=== PATIENT | female | born 1995 | race Caucasian/White ===

== ENCOUNTER 2016-06-07 15:08 | Emergency (ER) | payer OTHER ==
[~2016-06-07] VITALS: Ht 160 cm; Wt 65.7 kg
[2016-06-07 15:10] VITALS: TEMP 36.8; Ht 160 cm; Wt 65.7 kg
[2016-06-07] MEDS ORDERED: SODIUM CHLORIDE 0.9% 1000ML 1,000 ML IV STA ×2 (15:32)
[2016-06-07] MEDS ORDERED: ONDANSETRON INJ 2 MG/ML 2 ML VIAL IV STA (15:32)
[2016-06-07 16:01] LABS: URINE APPEARANCE CLEAR (CLEAR); URINE BILIRUBIN NEG (NEG); URINE COLOR YELLOW; URINE NITRITE NEG (NEG); URINE PH 5.5 (4.5-7.5); URINE SPECIFIC GRAVITY 1.029 (1.000-1.030); UROBILINOGEN NEG (NEG)
[2016-06-07 16:06] LABS: HEMATOCRIT 36.6 % (37-47); MEAN CELL VOLUME 83.8 fL (80-100); MEAN CORPUSCULAR HEMOGLOBIN 28.4 pg (25-34); MEAN CORPUSCULAR HGB CONC 33.9 g/dl (32-36); MEAN PLATELET VOLUME 9.2 fL (7.4-10.4); PLATELET COUNT 208 K/uL (130-400); RED BLOOD COUNT 4.37 M/uL (4.2-5.4); WHITE BLOOD COUNT 11.75 K/uL (4.8-10.8)
[2016-06-07 16:06] LABS: MANUAL MICROSCOPIC REQUIRED? NO; REVIEW REQ? NO
--- NOTE | 2016-06-07 16:19 | DIAGNOSTIC IMAGING REPORT ---
ABDOMEN 2VIEW W/PA CHEST RTN CLINICAL HISTORY: abd pain, diarrhea pain COMPARISON STUDY: No previous studies for comparison. FINDINGS: The soft tissues, psoas shadows, renal outlines and intestinal gas pattern appear normal. There is no evidence for bowel obstruction. There is no evidence for free intraperitoneal air. No abnormal abdominal calcifications are seen. A frontal view of the chest was performed and is unremarkable. IMPRESSION: Normal study. Electronically signed by: Rudy Cook M.D. 06/07/2016 4:17 PM Dictated Date/Time: 06/07/2016 4:17 PM
[2016-06-07 16:24] LABS: BUN/CREATININE RATIO 16.1 (10-20); CALCIUM 8.9 mg/dl (8.5-10.1); CREATININE 0.92 mg/dl (0.60-1.20); POTASSIUM 3.8 mmol/L (3.5-5.1)
[2016-06-07 16:27] LABS: ALB/GLOB RATIO 1.1 (0.9-2)
[2016-06-07 16:54] LABS: BASO % 0.3 %; BASO ABS # 0.03 K/uL (0-0.2); COMPLETE YES; EOS % 9.7 %; IG% 0.3 %; LYMPH % 22.4 %; LYMPH ABS # 2.63 K/uL (1.2-3.4); MONO % 5.2 %; NEUT % 62.1 %
--- NOTE | 2016-06-07 17:09 | DIAGNOSTIC IMAGING REPORT ---
Bio quadrant ultrasound GALLBLADDER-ABD LIMITED CLINICAL HISTORY: upper abd pain and nausea TECHNIQUE: Ultrasound COMPARISON STUDY: None FINDINGS: Normal gallbladder. Normal caliber bile duct 3 mm. Liver is uniform throughout. Pancreas and right kidney are unremarkable. IMPRESSION: Normal study Electronically signed by: Rudy Cook M.D. 06/07/2016 5:07 PM Dictated Date/Time: 06/07/2016 5:06 PM
--- NOTE | 2016-06-07 17:12 | DIAGNOSTIC IMAGING REPORT ---
EXAMINATION: PELVIC ULTRASOUND CLINICAL HISTORY: abd pain, hx of ovarian cyst, s/p r oophorectomy PAIN COMPARISON STUDY: None FINDINGS: The uterus measured 7.5 cm. The endometrial stripe measured 5 mm. The right ovary measured surgically removed. The left ovary measured 4.5 cm with several small follicular cysts. Normal vascular flow. There is no ultrasonographic evidence of ovarian torsion. It should be noted that ovarian torsion can be present with normal Doppler ultrasonographic findings. There was no evidence of pathologic free pelvic fluid. IMPRESSION: 1. Prior right ovarian removal 2. Several small left ovarian follicular cyst. 3. Study is otherwise negative. Electronically signed by: Rudy Cook M.D. 06/07/2016 5:10 PM Dictated Date/Time: 06/07/2016 5:09 PM
--- NOTE | 2016-06-07 18:03 | EMERGENCY ROOM VISIT NOTE ---
History First contact with patient: 15:13 Chief Complaint: ABDOMINAL PAIN Stated Complaint: ABDOMINAL PAIN Nursing Triage Summary: Patient c/o mid upper abdominal pain that began approx 1pm and lasted 2 hours but is getting better. Was seen at [facility]. Associated nausea intermittently. Denies v/d. History of Present Illness Patient is a 20-year-old white female who presents to emergency Department from [facility] for evaluation of abdominal pain. Patient states that she developed abdominal pain around 2 hours ago. It was roughly 1 hour after she had a a smoothie to drink. She notes the pain came on very suddenly and was constant for about 90 minutes. It was located in the mid upper abdomen and did not radiate. She states that she had nausea which came in waves, but she did not vomit. She states that at its worst she would've rated her pain an 8/10 and she was doubled over in discomfort. She does report having a normal bowel movement while experiencing the pain, and states that the bowel movement did not help alleviate her discomfort. She does note that she had about 4-5 episodes of loose, watery diarrhea yesterday. It was nonbloody and non- melanotic in nature. She went to [facility] where they checked her urine, then referred her to the emergency department for evaluation. In the interim, the patient reports that her pain has begun to subside on its own and she now only rates it a 5/10. She reports the only time she ever had abdominal discomfort was when she had a right ovarian cyst which ultimately resulted in a right oophorectomy in 2013. She denies any urinary symptoms. Her last menstrual period was 05/29/2015. She is sexually active, denies vaginal discharge or chance of . She denies any personal or family history of gallbladder disease. She denies history of gastritis or ulcers. She denies any recent alcohol use or regular NSAID use. Review of Systems Review of systems as per HPI. All other systems reviewed were negative. 10 systems reviewed. Past Medical/Surgical History Medical Problems: (1) History of right oophorectomy (2) No significant medical problems (3) No significant past surgical history (4) Ovarian cyst (5) Traumatic brain injury Electronic medical records are reviewed and summarized as above/below. See Problem List. Social History Smoking Status: Never Smoker Alcohol Use: none Marital Status: single Occupation Status: [employer] Current/Historical Medications No Active Prescriptions or Reported Meds Allergies Coded Allergies: No Known Allergies (Unverified , 01/01/13) Physical Exam Vital Signs Date Time Temp Pulse Resp B/P Pulse Ox O2 Delivery O2 Flow Rate FiO2 06/07/16 18:11 73 16 106/57 97 06/07/16 16:59 78 111/62 96 Room Air 06/07/16 15:10 36.8 84 18 114/73 99 Room Air Physical Exam CONSTITUTIONAL: Patient is a well-appearing 19-year-old white female who is awake and alert and in no acute distress. EYES: Pupils equal, round, reactive to light and accommodation. EOMs intact without nystagmus. Sclera are anicteric. ENT: Tympanic membranes intact, with normal landmarks. External canals are clear. Oral and nasopharynx are clear. Mucous membranes are moist, no lesions , tongue and gums appear normal. NECK: No bruits auscultated. Supple without lymphadenopathy. No thyromegaly. No meningeal signs. Full active range of motion without discomfort. CARDIOVASCULAR: Regular rate and rhythm, with normal S1 and S2, no murmur or gallop or rub is heard. No carotid bruits auscultated. No JVD. Peripheral pulses easy to palpable. RESPIRATORY: Breath sounds equal and clear to auscultation without wheezes, rales, or rhonchi heard. Full and equal chest expansion without accessory muscle use or retractions. GI: Bowel sounds are present. Abdomen is soft, nondistended, slightly tender in the epigastric region, no guarding or rebound. She does not have any localized pain in the right lower quadrant over McBurney's point. MUSCULOSKELETAL: Full range of motion of extremities x 4 with good strength. No cyanosis, edema, joint tenderness or swelling. No deformity. INTEGUMENTARY: No lesions or rash, normal skin turgor. NEUROLOGICAL: Alert, oriented, and cooperative. Cranial nerves, sensation and strength grossly intact. Pupils round, equal, and react to light, EOMs are full. LYMPH: No lymphadenopathy. Medical Decision & Procedures ER Provider Diagnostic Interpretation: ABDOMEN 2VIEW W/PA CHEST RTN CLINICAL HISTORY: abd pain, diarrhea pain COMPARISON STUDY: No previous studies for comparison. FINDINGS: The soft tissues, psoas shadows, renal outlines and intestinal gas pattern appear normal. There is no evidence for bowel obstruction. There is no evidence for free intraperitoneal air. No abnormal abdominal calcifications are seen. A frontal view of the chest was performed and is unremarkable. IMPRESSION: Normal study. GALLBLADDER-ABD LIMITED CLINICAL HISTORY: upper abd pain and nausea TECHNIQUE: Ultrasound COMPARISON STUDY: None FINDINGS: Normal gallbladder. Normal caliber bile duct 3 mm. Liver is uniform throughout. Pancreas and right kidney are unremarkable. IMPRESSION: Normal study EXAMINATION: PELVIC ULTRASOUND CLINICAL HISTORY: abd pain, hx of ovarian cyst, s/p r oophorectomy PAIN COMPARISON STUDY: None FINDINGS: The uterus measured 7.5 cm. The endometrial stripe measured 5 mm. The right ovary measured surgically removed. The left ovary measured 4.5 cm with several small follicular cysts. Normal vascular flow. There is no ultrasonographic evidence of ovarian torsion. It should be noted that ovarian torsion can be present with normal Doppler ultrasonographic findings. There was no evidence of pathologic free pelvic fluid. IMPRESSION: 1. Prior right ovarian removal 2. Several small left ovarian follicular cyst. 3. Study is otherwise negative. Laboratory Results 06/07/16 15:55 Red Blood Count 4.37, Mean Corpuscular Volume 83.8, Mean Corpuscular Hemoglobin 28.4, Mean Corpuscular Hemoglobin Concent 33.9, Mean Platelet Volume 9.2, Neutrophils (%) (Auto) 62.1, Lymphocytes (%) (Auto) 22.4, Monocytes (%) (Auto) 5.2, Eosinophils (%) (Auto) 9.7, Basophils (%) (Auto) 0.3, Neutrophils # (Auto) 7.30, Lymphocytes # (Auto) 2.63, Monocytes # (Auto) 0.61, Eosinophils # (Auto) 1.14, Basophils # (Auto) 0.03 06/07/16 15:55 Test 06/07/16 15:47 06/07/16 15:55 Urine Color YELLOW Urine Appearance CLEAR (CLEAR) Urine pH 5.5 (4.5-7.5) Urine Specific [place] 1.029 (1.000-1.030) Urine Protein NEG (NEG) Urine Glucose (UA) NEG (NEG) Urine Ketones NEG (NEG) Urine Occult Blood NEG (NEG) Urine Nitrite NEG (NEG) Urine Bilirubin NEG (NEG) Urine Urobilinogen NEG (NEG) Urine Leukocyte Esterase NEG (NEG) Urine Test NEG (NEG) White Blood Count 11.75 K/uL (4.8-10.8) Red Blood Count 4.37 M/uL (4.2-5.4) Hemoglobin 12.4 g/dL (12.0-16.0) Hematocrit 36.6 % (37-47) Mean Corpuscular Volume 83.8 fL (80-100) Mean Corpuscular Hemoglobin 28.4 pg (25-34) Mean Corpuscular Hemoglobin Concent 33.9 g/dl (32-36) Platelet Count 208 K/uL (130-400) Mean Platelet Volume 9.2 fL (7.4-10.4) Neutrophils (%) (Auto) 62.1 % Lymphocytes (%) (Auto) 22.4 % Monocytes (%) (Auto) 5.2 % Eosinophils (%) (Auto) 9.7 % Basophils (%) (Auto) 0.3 % Neutrophils # (Auto) 7.30 K/uL (1.4-6.5) Lymphocytes # (Auto) 2.63 K/uL (1.2-3.4) Monocytes # (Auto) 0.61 K/uL (0.11-0.59) Eosinophils # (Auto) 1.14 K/uL (0-0.5) Basophils # (Auto) 0.03 K/uL (0-0.2) RDW Standard Deviation 42.0 fL (36.4-46.3) RDW Coefficient of Variation 13.7 % (11.5-14.5) Immature Granulocyte % (Auto) 0.3 % Immature Granulocyte # (Auto) 0.04 K/uL (0.00-0.02) Anion Gap 6.0 mmol/L (3-11) Est Creatinine Clear Calc Drug Dose 88.1 ml/min Estimated GFR () 103.2 Estimated GFR (Non- 89.0 BUN/Creatinine Ratio 16.1 (10-20) Calcium Level 8.9 mg/dl (8.5-10.1) Total Bilirubin 0.3 mg/dl (0.2-1) Aspartate Amino Transf (AST/SGOT) 14 U/L (15-37) Alanine Aminotransferase (ALT/SGPT) 23 U/L (12-78) Alkaline Phosphatase 64 U/L (45-117) Total Protein 7.1 gm/dl (6.4-8.2) Albumin 3.7 gm/dl (3.4-5.0) Globulin 3.4 gm/dl (2.5-4.0) Albumin/Globulin Ratio 1.1 (0.9-2) Lipase 163 U/L (73-393) Medications Administered Medications (Trade) Dose Ordered Sig/Theo Route Start Time Stop Time Status Last Admin Dose Admin Sodium Chloride (Nss 1000ml) 1,000 ml @ 999 mls/hr Q1H1M STAT IV 06/07/16 15:32 06/07/16 16:32 DC 06/07/16 16:00 999 MLS/HR Ondansetron HCl (Zofran Inj) 4 mg NOW STAT IV 06/07/16 15:32 06/07/16 15:35 DC 06/07/16 16:00 4 MG ED Course The patient was seen and evaluated as above. Old records were reviewed. IV access was obtained and she was hydrated with normal saline solution. She was medicated with Zofran for nausea and declined any medication for discomfort. CBC with differential, CMP, lipase, urinalysis and urine test were collected. Acute abdominal series, pelvic ultrasound and right upper quadrant ultrasounds were obtained. Laboratory studies revealed a minimally elevated white count at 11,700. H&H is normal. Electrolytes and renal functions are within normal limits. LFTs and lipase are not elevated. Urinalysis is clear and urine test was negative. Acute abdominal series did not note any evidence for obstruction or free air. Biliary ultrasound was unremarkable. Pelvic ultrasound demonstrated a normal endometrial stripe, left ovary was normal with follicular cyst and normal vascular flow. The patient was reassessed frequently. She reported good relief of her discomfort and rated her pain a 1/10 at discharge. Differential diagnoses entertained included GERD, peptic ulcer disease, gastritis, pancreatitis, acute cholecystitis, cholelithiasis, biliary colic, bowel obstruction, perforation, colonic distention, ovarian cyst, among others. Supportive care measures were discussed. The patient was encouraged to resume a normal diet as tolerated and use [id number] medications for discomfort. She is discharged home in good condition. Vital signs were stable. Medical Decision See ED course. Impression Primary Impression: Abdominal pain, diffuse Departure Information Prescriptions No Active Prescriptions or Reported Meds Referrals [facility] (PCP) Patient Instructions My [facility] Additional Instructions Ibuprofen(Motrin, Advil) may be used for fever or pain. Use 600mg every six hours as needed. Take with food. Avoid using more than 2400mg in a 24 hour period. Do not use 2400mg per day for more than three consecutive days without physician direction. Prolonged inappropriate use can lead to stomach upset or ulcers. This is available over the counter and typically comes in 200mg tablets. (AND/OR) Acetaminophen(Tylenol) may be used for fever or pain. Use 1000mg every eight hours as needed. Avoid using more than 3000mg in a 24 hour period. This is available over the counter. Rest and drink plenty of fluids as tolerated. Slow sips of water or sports drinks are recommended instead of large amounts all at once. Continue current medications. Once your stomach is settled start with a clear liquid diet (jello, soup broth, etc.) and then advance as tolerated. You should avoid full, heavy meals for about 24 hrs from the time your symptoms resolved. Return to the ER immediately for worsening or persistent abdominal pain, vomiting, fevers, chest pains, difficulty breathing, black or bloody stools, worsening of your condition, or as needed. Follow up with your primary physician in 1-2 days for a recheck of your current condition.
[2016-06-07 18:11] VITALS: BP 106/57; PULSE 73; O2SAT 97
== END 2016-06-07 18:12 | disposition home or self-care (01) ==
LOC: C.EDB 15:09
DX: R10.11 Right upper quadrant pain (principal); N83.209 Unspecified ovarian cyst, unspecified side; Z87.820 Personal history of traumatic brain injury; Z90.721 Acquired absence of ovaries, unilateral